=== PATIENT | male | born 1935 | race Two or more races ===

== ENCOUNTER 2023-12-31 12:09 | Emergency (ER) | payer MEDICARE, MEDICAID, SELFPAY ==
[2023-12-31 12:36] VITALS: BP 116/76; PULSE 105; RESP 19; TEMP 36.4; O2SAT 97
[2023-12-31 12:39] VITALS: BMI 26.4
--- NOTE | 2023-12-31 12:55 | PC.NURSE ---
asked to change guardado by provider. When deflated balloon catheter fell out and discovered small blue catheter that remained in the penis. Could not see blue catheter prior to deflating balloon on guardado. Showed to provider. Blue cather only inside penis approx 6 inches, removed in order to replace guardado
--- NOTE | 2023-12-31 13:05 | XR_ITS ---
Examination: CT abdomen and pelvis without contrast. Coronal 3-D reconstructions. Sagittal 2-D reconstructions. Date and time of exam:December 31, 2023 1401 hrs. Comparison December 23, 2023 Indications: Lower pelvic pain beginning 3 days ago, history kidney stones CTDI: vol (mGy): 8.87 DLP: (mGycm): 500 Technique: Axial images of the abdomen have been obtained, 3 mm slice thickness Intravenous contrast material has not been administered. Low dose protocols were performed. One or more of the following dose reduction techniques were used; automated exposure control, adjustment of the mA and/or KV according to patient size, use of iterative reconstruction technique. Findings: Cholelithiasis. Benign liver cysts. Fatty infiltration throughout the liver No pancreatic mass 8 cm lateral right renal cyst Moderate left hydronephrosis wall thickening of the dilated left ureter air density in the left ureter, no current left ureteral calculus Multiple tiny calculi in the bladder Urinary Seaman catheter in the bladder with wall thickening of the urinary bladder No bowel obstruction or diverticulitis Prominent osteopenia Impression: Atrophic left kidney with moderate left hydronephrosis, findings most consistent with left pyelonephritis, no obstructing ureteral calculi currently Cystitis pattern Bladder calculi
--- NOTE | 2023-12-31 13:06 | PD.EDRME ---
Rapid Medical Screening Exam E Arrival date/time: 12/31/23 12:09 88-year-old male presents to the emergency department accompanied with son for complaints of Seaman catheter leaking/possible stent out of his penis. I have greeted and performed a focused initial assessment of this patient. Initial appropriate labs ordered at this time. A comprehensive ED assessment and evaluation of the patient and analysis of all test and completion of medical decision making process will be conducted by additional ED provider. Chief Complaint: Urogenital-Male Time Seen by Provider: 12/31/23 12:31 Vital signs: Vital Signs Temperature 97.6 F 12/31/23 12:36 Pulse Rate 105 H 12/31/23 12:36 Respiratory Rate 19 12/31/23 12:36 Blood Pressure 116/76 12/31/23 12:36 Pulse Oximetry (%) 97 12/31/23 12:36 Oxygen Delivery Method Room Air 12/31/23 12:36
[2023-12-31 13:30] LABS: Basophils # (Auto) 0.1 Thou/mm3 (0.0-0.2); Basophils % (Auto) 1 % (0-2.5); Eosinophils # (Auto) 0.2 Thou/mm3 (0.0-0.5); Eosinophils % (Auto) 2 % (0-10); Hematocrit 40.7 % (41.0-53.0); Immature Granulocytes % (Auto) 1 % (0-0); Immature Granulocytes Auto 0.08 Thou/mm3 (0.00-0.00); Lymphocytes # (Auto) 1.4 Thou/mm3 (1.0-4.8); Lymphocytes % (Auto) 14 % (10-50); Mean Corpuscular HGB Conc 34.4 g/dl (31.0-37.0); Mean Corpuscular Hemoglobin 30.6 pg (25.0-35.0); Mean Corpuscular Volume 89 fL (80-100); Monocytes # (Auto) 0.6 Thou/mm3 (0.0-0.8); Monocytes % (Auto) 6 % (0-12); Neutrophils # (Auto) 7.3 Thou/mm3 (1.8-7.7); Neutrophils % (Auto) 76 % (37-80); Nucleated Red Blood Cell % 0 /100 WBC (0); Platelet Count 292 Thou/mm3 (140-440); Red Blood Count 4.57 Miln/mm3 (4.50-5.90); White Blood Count 9.6 Thou/mm3 (3.8-10.6)
--- NOTE | 2023-12-31 13:40 | PD.EDADULT ---
ED General RME/HPI General Chief complaint: Urogenital-Male Stated complaint: WANTS MAGUIRE CHANGED /LEAKING URINE Time Seen by Provider: 12/31/23 12:31 Arrival date/time: 12/31/23 12:09 CC: Patient presents to the main ED after Maguire change was performed in the triage fast-track area, and we did confirm proper placement. Patient has no specific complaints. RME / HPI RME / HPI narrative: 12/31/23 12:09 88-year-old male presents to the emergency department accompanied with son for complaints of Maguire catheter leaking/possible stent out of his penis. I have greeted and performed a focused initial assessment of this patient. Initial appropriate labs ordered at this time. A comprehensive ED assessment and evaluation of the patient and analysis of all test and completion of medical decision making process will be conducted by additional ED provider. Related Data Home Medications ?Medication ?Instructions ?Recorded ?Confirmed baclofen 10 mg tablet 10 mg PO QDAY 03/08/22 05/05/22 Previous Rx's ?Medication ?Instructions ?Recorded hydrocodone 7.5 mg-acetaminophen 1 tab PO Q6H PRN pain #14 tabs 03/08/22 325 mg tablet acetaminophen 325 mg tablet 650 mg (2 x 325 mg) PO Q6H PRN 12/23/23 Fever >101.5 30 days #60 tabs ceftriaxone 1 gram/50 mL in 1 g (50 mL) IV DAILY@2100 10 days 12/23/23 dextrose (iso-osmot) intravenous #24 ea piggyback dextrose 50 % in water (D50W) 25 ml IV Q15MIN PRN BG 50-70 12/23/23 responsive npo pt 15 days #500 mL dextrose 50 % in water (D50W) 50 ml IV Q15MIN PRN BG <50 OR BG 12/23/23 <70 & pt unresponsive #500 mL glucagon HCl 1 mg/mL solution for 1 mg IM Q15MIN PRN BG <70, and no 12/23/23 injection IV access #10 ea heparin (porcine) 5,000 unit/mL 5,000 unit SCi Q8HR #25 mL 12/23/23 injection solution insulin regular human 100 unit/mL 2 unit (0.02 mL) SCi ACHS #10 mL 12/23/23 injection solution (Humulin R Regular U-100 Insulin) tamsulosin 0.4 mg capsule 0.4 mg PO BID 30 days #60 caps 12/23/23 ciprofloxacin HCl 500 mg tablet 500 mg PO BID #14 tabs 12/31/23 (Cipro) Allergies Allergy/AdvReac Type Severity Reaction Status Date / Time No Known Allergies Allergy Verified 12/22/23 18:14 Review of Systems Review of Systems Narrative Review of Systems: GEN: No fever, no chills, no weight loss EYES: No discharge, no visual changes, no pain HEENT: No ear pain, no congestion, no sore throat PULM: No shortness of breath, no cough, no congestion CV: No chest pain, no dyspnea on exertion, no palpitations GI: No nausea, no vomiting, no diarrhea, no pain, no constipation : No frequency, no urgency, no dysuria,+ leaking Maguire MUSC/SKEL: No joint pain, no back pain SKIN: No rash PSYCH: No hallucinations, no depression HEME/LYMPH: No easy bleeding or bruising tendencies NEURO: No weakness, no headache Past Medical History Past Medical History NEUROLOGIC: Negative Neurological Disorders, Cerebrovascular Accident or Seizures CARDIAC: Positive Cardiac Disorders, Hypercholesterolemia and Hypertension; Negative Myocardial Infarction or Congestive Heart Failure RESPIRATORY: Negative Chronic Obstructive Pulmonary Disease (COPD) or Asthma GASTROINTESTINAL: Negative Gastrointestinal Disorders, Gastrointestinal Bleed or Hemorrhoids GENITOURINARY: Positive Prostate Cancer; Negative Genitourinary Disorders or Renal Disease ENDOCRINE: Negative Endocrine Disorders, Diabetes Mellitus Type 1 or Diabetes Mellitus Type 2 HEMATOLOGIC: Negative Blood Disorders or Sickle Cell Disease OTHER HISTORY: Positive Cancer and Prostate Cancer; Negative Blood Transfusions or Anesthesia Reactions Social History SMOKING STATUS: Never smoker SUBSTANCE USE: does not use ED Exam Narrative Physical exam: [General: Not in any acute distress Head normocephalic HEENT: Within acceptable limits Neck is supple nontender Chest equal chest rise nontender to palpation Respiratory: Clear to auscultation no wheezes crackles or rubs CV: Rate rhythm is regular no murmurs rubs or clicks Abdomen is soft nontender no masses positive bowel sounds all 4 quadrants : Maguire in emerging from the meatus of the penis. With a small amount of clear urine leaking urine. Back: No CVA tenderness no spinous process tenderness from cervical spine thoracic and lumbar spine Skin: Intact no petechiae rash induration ulceration or crepitus Extremities: Moving all extremity against resistance cap refill less than 2 seconds neurosensory intact Neuro: Awake alert oriented x3 Glascow coma 15 no focal deficits] Course Quality Measures none Orders Category Date Time Status Urinary Catheter QS Care 12/31/23 13:08 Completed Urinary Catheter, Remove ONCE Care 12/31/23 13:[address] abdomen pelvis wo con Stat Exams 12/31/23 13:05 Completed CBC Stat Lab 12/31/23 13:13 Completed CMP [Comprehensive Metabolic Panel] Stat Lab 12/31/23 13:13 Completed UA [Urinalysis] Stat Lab 12/31/23 15:28 Completed cefTRIAXone/D5w 1gm IV premix [Rocephin/D5w 1gm IV Med 12/31/23 16:31 Discontinued premix] 50 ml IV X1 Vital Signs Vital signs: Vital Signs Temperature 97.6 F 12/31/23 12:36 Pulse Rate 105 H 12/31/23 12:36 Respiratory Rate 19 12/31/23 12:36 Blood Pressure 116/76 12/31/23 12:36 Pulse Oximetry (%) 97 12/31/23 12:36 Oxygen Delivery Method Room Air 12/31/23 12:36 [facility] Patient data External records reviewed:: [facility] previous records Clinical information provided by:: patient Social determinants that could affect healthcare access:: none Patient has the following chronic illnesses:: BPH recurrent UTIs How is presenting disease/condition affected by chronic disease/condition?: exacerbated by Evaluation data The following diagnostics were reviewed and interpreted by me:: lab results and radiology exam(s) Lab and/or radiology exams considered but not ordered:: CBC shows no acute leukocytosis anemia thrombocytopenia CMP shows a glucose of 138, sodium 134 no other acute electrolyte imbalances renal impairment transaminitis or T. bili elevation. Interpretation Summary: Maguire change, and UTI Medications Medications considered but not ordered:: None Medication administrations:: Medication Administration History Discontinued Medications Ceftriaxone Sodium/Dextrose (Rocephin/D5w 1gm Iv Premix) 50 mls @ 100 mls/hr IV X1 ONE Stop: 12/31/23 17:00 Last Admin: 12/31/23 16:45 Dose: 100 mls/hr Documented By: MATHEW None Consultations Consultation(s) initiated? (list below): No Diagnosis Differential Diagnosis ED Complaint MDM: Maguire change UTI cystitis Most likely diagnosis given after review of the tests above:: Maguire change UTI Admission Indicated Admission indicated?: not indicated Explain why admission is indicated or not indicated:: Stable for outpatient follow-up Admission Request Was there a request for admission?: No Disposition Plan Disposition Plan: Discharge Discharge Attestation Discharge Attestation: The patient and all family members were given an opportunity to ask questions and understood the discharge instructions. Discharge instructions specifically effects, indications for sooner follow up or return to the emergency department, and the expected course of current diagnosis. Patient condition: Stable Medical Decision Making Differential Diagnosis Differential Diagnosis: Maguire change UTI cystitis Lab Data 12/31/23 13:13 12/31/23 13:13 Labs: Lab Results 12/31/23 12/31/23 Range/Units 13:13 15:28 WBC 9.6 (3.8-10.6) Thou/mm3 RBC 4.57 (4.50-5.90) Miln/mm3 Hgb 14.0 (13.5-16.0) g/dL Hct 40.7 L (41.0-53.0) % MCV 89 (80-100) fL MCH 30.6 (25.0-35.0) pg MCHC 34.4 (31.0-37.0) g/dl RDW Std Deviation 42.0 (35.1-43.9) fL Plt Count 292 D (140-440) Thou/mm3 Neut % (Auto) 76 (37-80) % Lymph % (Auto) 14 (10-50) % [place] % (Auto) 6 (0-12) % Eos % (Auto) 2 (0-10) % Baso % (Auto) 1 (0-2.5) % Neut # (Auto) 7.3 (1.8-7.7) Thou/mm3 Lymph # (Auto) 1.4 (1.0-4.8) Thou/mm3 [place] # (Auto) 0.6 (0.0-0.8) Thou/mm3 Eos # (Auto) 0.2 (0.0-0.5) Thou/mm3 Baso # (Auto) 0.1 (0.0-0.2) Thou/mm3 Immature Gran # (Auto) 0.08 H (0.00-0.00) Thou/mm3 Absolute Nucleated RBC 0.00 (0.00-0.00) Thou/mm3 Immature Gran % 1 H (0-0) % Nucleated RBC % 0 (0) /100 WBC Sodium 134 L (136-145) mMol/L Potassium 4.1 (3.4-5.1) mMol/L Chloride 100 (98-107) mMol/L Carbon Dioxide 26.3 (20.0-31.0) mMol/L Anion Gap 8 (7-16) BUN 17 (9-23) mg/dL Creatinine 1.2 (0.6-1.3) mg/dL Estim Creat Clear Calc 39.1 L (>60) mL/min eGFR 59 L (60 - ) See Note BUN/Creatinine Ratio 14 (12-20) Ratio Glucose 138 H (74-106) mg/dL Calculated Osmolality 271 L (275-295) Calcium 9.2 (8.3-10.6) mg/dL Corrected Calcium 9.2 (8.5-10.1) mg/dL Total Bilirubin 0.3 (0.3-1.2) mg/dL AST 16 (0-34) U/L ALT 19 (10-49) U/L Alkaline Phosphatase 76 (46-116) U/L Total Protein 7.2 (5.7-8.2) gm/dL Albumin 4.1 (3.4-4.8) gm/dL Globulin 3.1 (2.3-3.5) gm/dL Albumin/Globulin Ratio 1.3 (1.2-2.2) Ur Collection Type Clean Catch Urine Color Lt-Brown A (Lt Yel-Yel) Urine Clarity Turbid A (Clear/Hazy) Urine pH 6.0 (5.0-7.0) Ur Specific [place] 1.027 (1.001-1.035) Urine Protein 2+ A (Neg - Trace) Urine Glucose (UA) Negative (Negative) Urine Ketones Negative (Negative) Urine Blood 3+ A (Negative) Urine Nitrite Negative (Negative) Urine Bilirubin Negative (Negative) Urine Urobilinogen (Auto) Negative (0.0-1.0) mg/dL Ur Leukocyte Esterase Positive (Negative) Urine RBC 1547 H (0-3) /hpf Urine WBC 851 H (0-5) /hpf Ur Squamous Epith Cells 2 (0-5) /hpf Ur Transition Epith Cell 1 (0-5) /hpf Urine Bacteria None (None) Ur Yeast w Hyphae Present A (None) Urine Yeast (Budding) Present A (None) Discharge Plan Plan Patient Disposition: HOME (Self Care) Patient condition on transfer: Stable Prescriptions/Referrals Prescriptions/Med Rec: New ciprofloxacin HCl [Cipro] 500 mg tablet 500 mg PO BID Qty: 14 0RF No Action baclofen 10 mg Tablet 10 mg PO QDAY hydrocodone-acetaminophen 7.5-325 mg tablet 1 tab PO Q6H MDD 4 PRN (Reason: pain) Qty: 14 0RF acetaminophen 325 mg Tablet 650 mg PO Q6H PRN (Reason: Fever >101.5) 30 Days Qty: 60 0RF ceftriaxone in dextrose,iso-os 1 gram/50 mL Piggyback 1 g IV DAILY@2100 10 Days Qty: 24 0RF dextrose 50 % in water (D50W) Syringe 50 ml IV Q15MIN PRN (Reason: BG <50 OR BG <70 & pt unresponsive) Qty: 500 0RF dextrose 50 % in water (D50W) Syringe 25 ml IV Q15MIN PRN (Reason: BG 50-70 responsive npo pt) 15 Days Qty: 500 0RF glucagon HCl 1 mg/mL Recon Soln 1 mg IM Q15MIN PRN (Reason: BG <70, and no IV access) Qty: 10 0RF Humulin R Regular U-100 Insuln 100 unit/mL Solution 2 unit SCi ACHS Qty: 10 0RF heparin (porcine) 5,000 unit/mL Solution 5,000 unit SCi Q8HR Qty: 25 0RF tamsulosin 0.4 mg Capsule 0.4 mg PO BID 30 Days Qty: 60 0RF Referrals: Radha Yoder CNP [Primary Care Provider] - In 1 week Problem List Clinical Impression: UTI (urinary tract infection) due to urinary indwelling catheter Patient/Caregiver Discharge Instructions Other Activity Instructions:: Maguire is in place, continue take the medications to completely gone. Follow-up with your primary care provider. Print Language: Icelandic Stand Alone Forms: Janell Award Info., Work/School Release, Patient Portal Info Letter Attestation Attestation The patient was seen by the midlevel practitioner. I, the co-signing physician, was present during the entire ER visit. While I did not physically examine the patient, I was available for consultation as needed.
[2023-12-31 13:41] LABS: Alanine Aminotransferase 19 U/L (10-49); Albumin, Serum 4.1 gm/dL (3.4-4.8); Albumin/Globulin Ratio 1.3 (1.2-2.2); Alkaline Phosphatase 76 U/L (46-116); Anion Gap 8 (7-16); Aspartate Amino Transferase 16 U/L (0-34); BUN/Creatinine Ratio 14 Ratio (12-20); Bilirubin,Total 0.3 mg/dL (0.3-1.2); Blood Urea Nitrogen 17 mg/dL (9-23); Calcium 9.2 mg/dL (8.3-10.6); Calcium (Corrected) 9.2 mg/dL (8.5-10.1); Carbon Dioxide 26.3 mMol/L (20.0-31.0); Chloride 100 mMol/L (98-107); Creatinine (Component) 1.2 mg/dL (0.6-1.3); Estimated Creatinine Clearance 39.1 mL/min (>60); Globulin 3.1 gm/dL (2.3-3.5); Glucose 138 mg/dL (74-106); Osmolality,Calculated 271 (275-295); Potassium 4.1 mMol/L (3.4-5.1); Sodium 134 mMol/L (136-145); Total Protein 7.2 gm/dL (5.7-8.2); eGFR 59 See Note
[2023-12-31 15:05] VITALS: BP 146/83; PULSE 88; RESP 18; TEMP 36.5; O2SAT 96
[2023-12-31 15:36] LABS: Collection Type, Urine Clean Catch
[2023-12-31 16:09] LABS: Bilirubin,Urine Negative (Negative); Blood,Urine 3+ (Negative); Budding Yeast,Urine Present; Glucose, Urine Negative (Negative); Hyphae Yeast Present; Ketones,Urine Negative (Negative); Leukocyte Esterase,Urine Positive (Negative); Nitrite,Urine Negative (Negative); Protein,Urine 2+ (Neg - Trace); RBC,Urine 1547 /hpf (0-3); Specific Gravity,Urine 1.027 (1.001-1.035); Squamous Epithelial Cell,Urine 2 /hpf (0-5); Transitional Epi Cells,Urine 1 /hpf (0-5); Urobilinogen,Urine Negative mg/dL (0.0-1.0); WBC,Urine 851 /hpf (0-5)
[2023-12-31 16:10] LABS: Clarity,Urine Turbid (Clear/Hazy); Color,Urine Lt-Brown (Lt Yel-Yel)
[2023-12-31 16:20] VITALS: BP 152/92; PULSE 85; RESP 16; TEMP 36.4; O2SAT 94
[2023-12-31] MEDS: cefTRIAXone/D5w 1gm IV premix 50 ML IV (16:45)
== END 2023-12-31 16:53 | disposition home or self-care (01) ==
PROVIDERS: Nurse Practitioner Primary Care; Emergency Provider Emergency Medicine; PCP Nurse Practitioner Family
DX: T83.511A Infection and inflammatory reaction due to indwelling urethral catheter, initial encounter (principal); N39.0 Urinary tract infection, site not specified; Y84.6 Urinary catheterization as the cause of abnormal reaction of the patient, or of later complication, without mention of misadventure at the time of the procedure
CPT/HCPCS: 51702; 36415; 74176; 80053; 81001; 85025; 87086; 99284; J0696

== ENCOUNTER 2024-01-09 12:43 | Emergency (ER) | payer MEDICARE, MEDICAID, SELFPAY ==
[2024-01-09 13:02] VITALS: BP 123/75; PULSE 103; RESP 19; TEMP 37.2; O2SAT 99; BMI 30.6
[2024-01-09 14:40] LABS: Collection Type, Urine Clean Catch
[2024-01-09 14:51] LABS: Bacteria,Urine Rare; Bilirubin,Urine Negative (Negative); Blood,Urine 2+ (Negative); Color,Urine Lt-Yellow (Lt Yel-Yel); Glucose, Urine Negative (Negative); Hyaline Casts,Urine < 1 /hpf (0-1); Ketones,Urine Negative (Negative); Leukocyte Esterase,Urine Positive (Negative); Nitrite,Urine Negative (Negative); Protein,Urine 1+ (Neg - Trace); RBC,Urine 19 /hpf (0-3); Specific Gravity,Urine 1.014 (1.001-1.035); Squamous Epithelial Cell,Urine < 1 /hpf (0-5); Urobilinogen,Urine Negative mg/dL (0.0-1.0); WBC,Urine 266 /hpf (0-5)
[2024-01-09 14:52] LABS: Clarity,Urine Hazy (Clear/Hazy); Culture Indicated,Urine Yes
--- NOTE | 2024-01-09 15:01 | EDNOTE_ITS ---
ED Male Genitalurinary RME/HPI General Chief complaint: Urogenital-Male Stated complaint: INFECTION IN HIS PENIS X 3 DAYS Time Seen by Provider: 01/09/24 12:54 Arrival date/time: 01/09/24 12:43 88-year-old male with indwelling catheter presents emergency department today with son who reports the patient has increased sediment in his urine and is concerned about a possible infection. Patient reports no nausea no vomiting reports he feels well Limitations: no limitations Related Data Home Medications ?Medication ?Instructions ?Recorded ?Confirmed baclofen 10 mg tablet 10 mg PO QDAY 03/08/22 05/05/22 Previous Rx's ?Medication ?Instructions ?Recorded hydrocodone 7.5 mg-acetaminophen 1 tab PO Q6H PRN pain #14 tabs 03/08/22 325 mg tablet acetaminophen 325 mg tablet 650 mg (2 x 325 mg) PO Q6H PRN 12/23/23 Fever >101.5 30 days #60 tabs dextrose 50 % in water (D50W) 50 ml IV Q15MIN PRN BG <50 OR BG 12/23/23 <70 & pt unresponsive #500 mL glucagon HCl 1 mg/mL solution for 1 mg IM Q15MIN PRN BG <70, and no 12/23/23 injection IV access #10 ea heparin (porcine) 5,000 unit/mL 5,000 unit SCi Q8HR #25 mL 12/23/23 injection solution insulin regular human 100 unit/mL 2 unit (0.02 mL) SCi ACHS #10 mL 12/23/23 injection solution (Humulin R Regular U-100 Insulin) tamsulosin 0.4 mg capsule 0.4 mg PO BID 30 days #60 caps 12/23/23 ciprofloxacin HCl 500 mg tablet 500 mg PO BID #14 tabs 12/31/23 (Cipro) cefpodoxime 200 mg tablet 200 mg PO BID 7 days #14 tabs 01/09/24 Allergies Allergy/AdvReac Type Severity Reaction Status Date / Time No Known Allergies Allergy Verified 01/09/24 12:44 Review of Systems Review of Systems Systems Reviewed: All systems reviewed, normal except as documented Constitutional Constitutional: Reports system reviewed and no additional complaints, except as documented, Denies fever(s) and Denies headache(s) Eyes Eyes: Reports system reviewed and no additional complaints, except as documented and Denies blurry vision ENT Ears, Nose, Mouth, and Throat: Reports system reviewed and no additional complaints, except as documented, Denies headache(s), Denies nasal congestion and Denies nasal discharge Cardiovascular Cardiovascular: Reports system reviewed and no additional complaints, except as documented, Denies chest pain and Denies dyspnea Respiratory Respiratory: Reports system reviewed and no additional complaints, except as documented, Denies chest congestion, Denies cough and Denies dyspnea Gastrointestinal Gastrointestinal: Reports system reviewed and no additional complaints, except as documented and Denies abdominal pain Genitourinary Genitourinary: Reports system reviewed and no additional complaints, except as documented, Denies difficulty urinating, Denies dysuria, Denies testicular pain, Denies urinary frequency and Reports other (Discolored/sediment in urine) Integumentary/Breasts Skin/Breast: Reports system reviewed and no additional complaints, except as documented and Denies rash Neurologic Neurologic: Reports system reviewed and no additional complaints, except as documented, Reports as per HPI and Denies headache(s) Past Medical History Past Medical History NEUROLOGIC: Negative Neurological Disorders CARDIAC: Negative Cardiac Disorders ED Exam General Limitations: Present no limitations General appearance: Present alert and in no apparent distress Head Head exam: Present atraumatic Eye Eye exam: Present normal appearance, PERRL and EOMI ENT ENT exam: Present normal exam, normal oropharynx and mucous membranes moist Neck Neck exam: Present normal inspection, full ROM and trachea midline Chest Chest inspection: Present normal inspection and symmetric chest wall rise Respiratory Respiratory exam: Present normal lung sounds bilaterally; Absent respiratory distress Cardiovascular Cardiovascular exam: Present regular rate, normal rhythm and normal heart sounds Abdominal Exam Abdominal exam: Present soft and normal bowel sounds; Absent distention, tenderness, guarding, rebound or rigidity Extremities Exam Extremities exam: Present normal inspection and full ROM Back Exam Back exam: Present normal inspection and full ROM Neurological Exam Neurological exam: Present alert, oriented X3 and CN II-XII intact Psychiatric Psychiatric exam: Present normal affect and normal mood Skin Skin exam: Present warm, dry, intact and normal color Course Quality Measures none Orders Category Date Time Status Seaman [Urinary Catheter] NOW Care 01/09/24 13:09 Completed UA, C/S IF [Urinalysis, C/S if Indicated] Stat Lab 01/09/24 14:16 Completed Urine Culture Stat Lab 01/09/24 14:16 Received Lidocaine 1% 20 ml [Xylocaine 1% 20 ML] Med 01/09/24 15:01 Discontinued 2.1 ml INFL X1 ONE cefTRIAXone [Rocephin] Med 01/09/24 15:01 Discontinued 1,000 mg IM X1 ONE Vital Signs Vital signs: Vital Signs Temperature 98.9 F 01/09/24 13:02 Pulse Rate 103 H 01/09/24 13:02 Respiratory Rate 19 01/09/24 13:02 Blood Pressure 123/75 01/09/24 13:02 Pulse Oximetry (%) 99 01/09/24 13:02 Oxygen Delivery Method Room Air 01/09/24 13:02 O2 saturation 99% room air within normal limits Urogenital - Male MDM Narrative MDM Narrative:: 88-year-old male with indwelling catheter presents emergency department today with son who reports the patient has increased sediment in his urine and is co ncerned about a possible infection. Patient reports no nausea no vomiting reports he feels well On exam patient well-appearing patient does not appear ill or toxic and in no acute distress Patient's Seaman catheter was changed UA obtained consistent with UTI Patient discharged home in no distress to follow-up with primary care doctor in the next 24 to 48 hours and for any worsening symptoms to return to the ER immediately Patient data External records reviewed:: [facility] previous records Clinical information provided by:: patient Social determinants that could affect healthcare access:: none Patient has the following chronic illnesses:: None How is presenting disease/condition affected by chronic disease/condition?: no chronic disease Evaluation data The following diagnostics were reviewed and interpreted by me:: lab results Lab and/or radiology exams considered but not ordered:: Labs labs obtained Interpretation Summary: Reviewed by me Medications / Prescriptions Medications or Prescriptions considered but not ordered:: Given Medication administrations:: Medication Administration History Discontinued Medications Ceftriaxone Sodium (Ceftriaxone Sod Inj 1,000 Mg Vial) 1,000 mg IM X1 ONE Stop: 01/09/24 15:02 Last Admin: 01/09/24 15:11 Dose: 1,000 mg Documented By: JONY Lidocaine HCl (Lidocaine Hcl 1% 20 Ml Vial) 2.1 ml INFL X1 ONE Stop: 01/09/24 15:02 Last Admin: 01/09/24 15:11 Dose: 2.1 ml Documented By: JONY Given Consultations Consultation(s) initiated? (list below): No Diagnosis Urogenital Male Differential Diagnosis: urinary tract infection, acute retention of urine and other (Dysuria) Most likely diagnosis given after review of the tests above:: UTI Admission Indicated Admission indicated?: not indicated Admission Request Was there a request for admission?: No Disposition Plan Disposition Plan: Discharge Discharge Attestation Discharge Attestation: The patient and all family members were given an opportunity to ask questions and understood the discharge instructions. Discharge instructions specifically effects, indications for sooner follow up or return to the emergency department, and the expected course of current diagnosis. Patient condition: Stable Discharge Plan Plan Patient Disposition: HOME (Self Care) Disposition Comment: Stable Prescriptions/Referrals Prescriptions/Med Rec: New cefpodoxime 200 mg tablet 200 mg PO BID 7 Days Qty: 14 0RF Rx Instructions: must administer with a meal/food No Action ciprofloxacin HCl [Cipro] 500 mg tablet 500 mg PO BID Qty: 14 0RF baclofen 10 mg Tablet 10 mg PO QDAY hydrocodone-acetaminophen 7.5-325 mg tablet 1 tab PO Q6H MDD 4 PRN (Reason: pain) Qty: 14 0RF acetaminophen 325 mg Tablet 650 mg PO Q6H PRN (Reason: Fever >101.5) 30 Days Qty: 60 0RF dextrose 50 % in water (D50W) Syringe 50 ml IV Q15MIN PRN (Reason: BG <50 OR BG <70 & pt unresponsive) Qty: 500 0RF glucagon HCl 1 mg/mL Recon Soln 1 mg IM Q15MIN PRN (Reason: BG <70, and no IV access) Qty: 10 0RF Humulin R Regular U-100 Insuln 100 unit/mL Solution 2 unit SCi ACHS Qty: 10 0RF heparin (porcine) 5,000 unit/mL Solution 5,000 unit SCi Q8HR Qty: 25 0RF tamsulosin 0.4 mg Capsule 0.4 mg PO BID 30 Days Qty: 60 0RF Referrals: Roxy Newman NP [Primary Care Provider] - 01/10/24 Problem List Clinical Impression: UTI (urinary tract infection), Indwelling Seaman catheter present Patient/Caregiver Discharge Instructions Education Materials: When to Use Antibiotics Additional Instructions: Please follow up with your primary care doctor in the next 24-48hrs for any worsening symptoms return here immediately Print Language: Lithuanian Stand Alone Forms: Janell Award Info., Patient Portal Info Letter Attestation Attestation The patient was seen by the midlevel practitioner. I, the co-signing physician, was present during the entire ER visit. While I did not physically examine the patient, I was available for consultation as needed.
[2024-01-09] MEDS: LIDOCAINE HCL 1% 20 ML VIAL 2.1 ML INFL (15:11)
[2024-01-09] MEDS: cefTRIAXone SOD INJ 1,000 MG VIAL 1000 MG IM (15:11)
== END 2024-01-09 15:24 | disposition home or self-care (01) ==
PROVIDERS: Nurse Practitioner Primary Care; Emergency Provider Emergency Medicine; PCP Nurse Practitioner Family
DX: N39.0 Urinary tract infection, site not specified (principal)
CPT/HCPCS: 51702; 81001; 87086; 87106; 96372; 99283; J0696; J3490

== ENCOUNTER 2024-02-02 15:05 | Emergency (ER) | payer MEDICARE, MEDICAID, SELFPAY ==
[2024-02-02 15:40] VITALS: BP 110/72; PULSE 100; RESP 16; TEMP 36.9; O2SAT 96; BMI 29.2
--- NOTE | 2024-02-02 15:45 | EDRME_ITS ---
Rapid Medical Screening Exam [facility] Arrival date/time: 02/02/24 15:05 88-year-old male presents to the emergency department with complaints of nausea vomiting and leakage of Seaman catheter. Recent history of lithotripsy. I have greeted and performed a focused initial assessment of this patient. Initial appropriate labs ordered at this time. A comprehensive ED assessment and evaluation of the patient and analysis of all test and completion of medical decision making process will be conducted by additional ED provider. Chief Complaint: Nausea/Vomiting/Diarrhea Time Seen by Provider: 02/02/24 15:26 Vital signs: Vital Signs Temperature 98.5 F 02/02/24 15:40 Pulse Rate 100 02/02/24 15:40 Respiratory Rate 16 02/02/24 15:40 Blood Pressure 110/72 02/02/24 15:40 Pulse Oximetry (%) 96 02/02/24 15:40 Oxygen Delivery Method Room Air 02/02/24 15:40
[2024-02-02 16:21] LABS: Basophils % (Auto) 0 % (0-2.5); Eosinophils % (Auto) 0 % (0-10); Hematocrit 37.7 % (41.0-53.0); Hemoglobin 12.7 g/dL (13.5-16.0); Immature Granulocytes % (Auto) 0 % (0-0); Immature Granulocytes Auto 0.03 Thou/mm3 (0.00-0.00); Lymphocytes # (Auto) 2.1 Thou/mm3 (1.0-4.8); Lymphocytes % (Auto) 20 % (10-50); Mean Corpuscular HGB Conc 33.7 g/dl (31.0-37.0); Mean Corpuscular Hemoglobin 30.8 pg (25.0-35.0); Mean Corpuscular Volume 92 fL (80-100); Monocytes # (Auto) 0.7 Thou/mm3 (0.0-0.8); Monocytes % (Auto) 6 % (0-12); Neutrophils # (Auto) 7.4 Thou/mm3 (1.8-7.7); Neutrophils % (Auto) 73 % (37-80); Nucleated Red Blood Cell % 0 /100 WBC (0); Platelet Count 164 Thou/mm3 (140-440); RDW Standard Deviation 47.8 fL (35.1-43.9); Red Blood Count 4.12 Miln/mm3 (4.50-5.90); White Blood Count 10.2 Thou/mm3 (3.8-10.6)
[2024-02-02 16:40] LABS: Alanine Aminotransferase 20 U/L (10-49); Albumin, Serum 4.1 gm/dL (3.4-4.8); Albumin/Globulin Ratio 1.4 (1.2-2.2); Alkaline Phosphatase 79 U/L (46-116); Anion Gap 8 (7-16); Aspartate Amino Transferase 14 U/L (0-34); BUN/Creatinine Ratio 12 Ratio (12-20); Bilirubin,Total 0.7 mg/dL (0.3-1.2); Blood Urea Nitrogen 18 mg/dL (9-23); Carbon Dioxide 25.9 mMol/L (20.0-31.0); Chloride 99 mMol/L (98-107); Creatinine (Component) 1.5 mg/dL (0.6-1.3); Estimated Creatinine Clearance 32.6 mL/min (>60); Globulin 2.9 gm/dL (2.3-3.5); Glucose 129 mg/dL (74-106); Osmolality,Calculated 270 (275-295); Potassium 4.1 mMol/L (3.4-5.1); Sodium 133 mMol/L (136-145); eGFR 45 See Note
--- NOTE | 2024-02-02 18:46 | PD.EDNV ---
Nausea/Vomit./Diarrhea-RME/HPI General Chief complaint: Nausea/Vomiting/Diarrhea Stated complaint: VOMITING SINCE LAST NIGHT,CATHETER LEAKING Time Seen by Provider: 02/02/24 15:26 Arrival date/time: 02/02/24 15:05 RME / HPI RME / HPI Narrative: 88-year-old male presents to the emergency department with complaints of nausea vomiting and leakage of Seaman catheter. This been ongoing since last night. Denies any fever. Recent history of lithotripsy. Denies any abdominal pain. Related Data Home Medications ?Medication ?Instructions ?Recorded ?Confirmed baclofen 10 mg tablet 10 mg PO QDAY 03/08/22 05/05/22 Previous Rx's ?Medication ?Instructions ?Recorded hydrocodone 7.5 mg-acetaminophen 1 tab PO Q6H PRN pain #14 tabs 03/08/22 325 mg tablet dextrose 50 % in water (D50W) 50 ml IV Q15MIN PRN BG <50 OR BG 12/23/23 <70 & pt unresponsive #500 mL glucagon HCl 1 mg/mL solution for 1 mg IM Q15MIN PRN BG <70, and no 12/23/23 injection IV access #10 ea heparin (porcine) 5,000 unit/mL 5,000 unit SCi Q8HR #25 mL 12/23/23 injection solution insulin regular human 100 unit/mL 2 unit (0.02 mL) SCi ACHS #10 mL 12/23/23 injection solution (Humulin R Regular U-100 Insulin) ciprofloxacin HCl 500 mg tablet 500 mg PO BID #14 tabs 12/31/23 (Cipro) cefuroxime axetil 500 mg tablet 500 mg PO BID #14 tabs 02/02/24 Allergies Allergy/AdvReac Type Severity Reaction Status Date / Time No Known Allergies Allergy Verified 02/02/24 15:11 Review of Systems Review of Systems Narrative Review of Systems: Review of system reviewed and within normal limits except mentioned in HPI ED Exam Narrative Physical exam: VITAL SIGNS: Reviewed. GENERAL APPEARANCE: Alert and interactive, follows commands, no acute distress, HEAD AND FACE: Non-traumatic. ENT: PERRL, pink conjunctivitis, eyelid no trauma, Mucous membrane moist. NECK: Supple, nontender, no nuchal rigidity. CHEST: No tenderness, no crepitus, no paradoxical movement, no retractions. LUNGS: Clear, well ventilated, symmetric, no rales, no wheezing, no ronchi, no stridor, good breath sounds bilaterally. HEART: Regular rate, regular rhythm, no murmur, no gallops. ABDOMEN: Soft, positive bowel sounds, nondistended, no guarding, nontender, no rebound, no masses, RECTAL: Deferred. GENITAL: Seaman catheter intact however I noticed some urine leaking around the Seaman and the insertion site NEUROLOGICAL: Gross motor function intact sensory function intact, Appropriate for age. MUSCULOSKELETAL: low back nontender, full range of motion. EXTREMITIES: Nontender, full range of motion. SKIN: Color pink, dry, no rash, no lacerations, no abrasions, no contusions. LYMPHATICS: Deferred. Course Quality Measures none Orders Category Date Time Status Seaman [Urinary Catheter] QS Care 02/02/24 15:44 Active CBC Stat Lab 02/02/24 15:58 Completed CMP [Comprehensive Metabolic Panel] Stat Lab 02/02/24 15:58 Completed Urinalysis Stat Lab 02/02/24 19:15 Completed Urine Culture Stat Lab 02/02/24 19:15 Received Ondansetron Inj [Zofran Inj] Med 02/02/24 18:42 Discontinued 4 mg IV X1 ONE Sodium Chloride 0.9% 1000 ml [Ns] 1,000 ml Med 02/02/24 18:43 Discontinued IV 999 mls/hr cefTRIAXone/D5w 1gm IV premix [Rocephin/D5w 1gm IV Med 02/02/24 20:42 Discontinued premix] 50 ml IV X1 Vital Signs Vital signs: Vital Signs Temperature 98.5 F 02/02/24 15:40 Pulse Rate 100 02/02/24 15:40 Respiratory Rate 16 02/02/24 15:40 Blood Pressure 110/72 02/02/24 15:40 Pulse Oximetry (%) 96 02/02/24 15:40 Oxygen Delivery Method Room Air 02/02/24 15:40 Nausea/Vomiting/Diarrhea MDM Narrative MDM Narrative:: 88-year-old male presents to the emergency department with complaints of nausea vomiting and leakage of Seaman catheter. This been ongoing since last night. Denies any fever. Recent history of lithotripsy. Denies any abdominal pain. Urinary significant for UTI. A bigger Seaman catheter was inserted this time I used [place] 20 no leaking noted and draining well. Patient data External records reviewed:: None Clinical information provided by:: none Social determinants that could affect healthcare access:: none Patient has the following chronic illnesses:: Chronic Seaman catheter. Diabetes mellitus How is presenting disease/condition affected by chronic disease/condition?: exacerbated by Evaluation data The following diagnostics were reviewed and interpreted by me:: lab results Lab and/or radiology exams considered but not ordered:: None Interpretation Summary: Reports workup significant for UTI. Medications / Prescriptions Medications / Prescriptions considered but not ordered:: None Medication administrations:: Medication Administration History Discontinued Medications Sodium Chloride (Ns) 1,000 mls @ 999 mls/hr IV .Q1H1M ONE Stop: 02/02/24 19:43 Last Infusion: 02/02/24 20:46 Dose: Infused Documented By: Admin: 02/02/24 18:56 Dose: 999 mls/hr Documented By: AM Ceftriaxone Sodium/Dextrose (Rocephin/D5w 1gm Iv Premix) 50 mls @ 100 mls/hr IV X1 ONE Stop: 02/02/24 21:11 Last Admin: 02/02/24 21:21 Dose: 100 mls/hr Documented By: DB Ondansetron HCl (Ondansetron Inj 2 Mg/Ml Inj 2 Ml) 4 mg IV X1 ONE; Protocol Stop: 02/02/24 18:43 Last Admin: 02/02/24 18:56 Dose: 4 mg Documented By: AM Ceftriaxone IM and IV fluids for hydration and Zofran Consultations Consultation(s) initiated? (list below): No Diagnosis Nausea Differential Diagnosis: gastroenteritis, dehydration and other (UTI) Most likely diagnosis given after review of the tests above:: Nausea and vomiting, UTI, Admission Indicated Admission indicated?: not indicated Explain why admission is indicated or not indicated:: Stable. No more vomiting in the ED. Patient told me that he is back to baseline. After medication was given Admission Request Was there a request for admission?: No Disposition Plan Disposition Plan: Discharge Discharge Attestation Discharge Attestation: The patient and all family members were given an opportunity to ask questions and understood the discharge instructions. Discharge instructions specifically effects, indications for sooner follow up or return to the emergency department, and the expected course of current diagnosis. Patient condition: Stable Discharge Plan Plan Patient Disposition: HOME (Self Care) Disposition Comment: Stable Prescriptions/Referrals Prescriptions/Med Rec: New cefuroxime axetil 500 mg tablet 500 mg PO BID Qty: 14 0RF No Action ciprofloxacin HCl [Cipro] 500 mg tablet 500 mg PO BID Qty: 14 0RF baclofen 10 mg Tablet 10 mg PO QDAY hydrocodone-acetaminophen 7.5-325 mg tablet 1 tab PO Q6H MDD 4 PRN (Reason: pain) Qty: 14 0RF dextrose 50 % in water (D50W) Syringe 50 ml IV Q15MIN PRN (Reason: BG <50 OR BG <70 & pt unresponsive) Qty: 500 0RF glucagon HCl 1 mg/mL Recon Soln 1 mg IM Q15MIN PRN (Reason: BG <70, and no IV access) Qty: 10 0RF Humulin R Regular U-100 Insuln 100 unit/mL Solution 2 unit SCi ACHS Qty: 10 0RF heparin (porcine) 5,000 unit/mL Solution 5,000 unit SCi Q8HR Qty: 25 0RF Referrals: Joan Balderas PA-C [Primary Care Provider] - In 1 week Problem List Clinical Impression: UTI (urinary tract infection) due to urinary indwelling catheter Patient/Caregiver Discharge Instructions Discharge Activity: activity as tolerated Education Materials: Understanding Urinary Tract ... Additional Instructions: Thank you for the opportunity for serving you today. You are stable for discharged . You are advised to: Follow-up with your PCP in 1 to 2 days Return to ED for worsening of symptoms Increase oral fluids Take medication as prescribed Print Language: Greenlandic Stand Alone Forms: Janell Award Info., Patient Portal Info Letter NILSA/HELADIO Supervising Physician NILSA/HELADIO Supervising Physician: MD Kevin
[2024-02-02] MEDS: ONDANSETRON INJ 2 MG/ML INJ 2 ML 4 MG IV (18:56)
[2024-02-02] MEDS: SODIUM CHLORIDE 0.9% 1000 ML 1,000 ML 999 ML IV (18:56)
[2024-02-02 19:00] VITALS: BP 148/75; PULSE 83; RESP 16; TEMP 36.9; O2SAT 97
[2024-02-02 19:32] LABS: Collection Type, Urine Clean Catch
[2024-02-02 20:01] LABS: Bilirubin,Urine Negative (Negative); Blood,Urine 2+ (Negative); Glucose, Urine Negative (Negative); Ketones,Urine Negative (Negative); Leukocyte Esterase,Urine Positive (Negative); Nitrite,Urine Positive (Negative); Protein,Urine 1+ (Neg - Trace); RBC,Urine 55 /hpf (0-3); Specific Gravity,Urine 1.023 (1.001-1.035); Squamous Epithelial Cell,Urine 3 /hpf (0-5); WBC,Urine 2712 /hpf (0-5)
[2024-02-02 20:03] LABS: Clarity,Urine Turbid (Clear/Hazy); Color,Urine Lt Orange (Lt Yel-Yel)
[2024-02-02 20:09] VITALS: BP 120/88; PULSE 79; RESP 18; TEMP 37; O2SAT 95
[2024-02-02 20:12] VITALS: BP 120/88; PULSE 78; RESP 18; TEMP 36.7; O2SAT 96
[2024-02-02] MEDS: cefTRIAXone/D5w 1gm IV premix 50 ML IV (21:21)
--- NOTE | 2024-02-02 22:30 | PC.NURSE ---
Pt had a 20fr cath was inserted earlier today,but it started to leak, Per [employer] [employer] [facility] Will he order for a 22fr cath to be inserted. in which i placed
[2024-02-02 22:39] VITALS: BP 147/68; PULSE 77; RESP 16; TEMP 36.8; O2SAT 99
== END 2024-02-02 22:39 | disposition home or self-care (01) ==
PROVIDERS: Nurse Practitioner Primary Care; Emergency Provider Emergency Medicine; PCP Physician Assistant
DX: T83.511A Infection and inflammatory reaction due to indwelling urethral catheter, initial encounter (principal); N39.0 Urinary tract infection, site not specified; Y84.6 Urinary catheterization as the cause of abnormal reaction of the patient, or of later complication, without mention of misadventure at the time of the procedure
CPT/HCPCS: 51702; 36415; 80053; 81001; 85025; 87077; 87086; 87186; 96361; 96365; 96375; 99284; J0696; J2405; J7030

== ENCOUNTER 2024-04-22 09:33 | Emergency (ER) | payer MEDICARE, MEDICAID, SELFPAY ==
[2024-04-22 09:33] VITALS: BMI 25.0
[2024-04-22 09:44] VITALS: BP 150/79; PULSE 93; RESP 19; TEMP 36.4; O2SAT 96
--- NOTE | 2024-04-22 09:51 | EDNOTE_ITS ---
ED Male Genitalurinary RME/HPI General Chief complaint: Urogenital-Male Stated complaint: NEEDS NEW CATHETER BAG Time Seen by Provider: 04/22/24 09:38 Source: patient Arrival date/time: 04/22/24 09:33 88-year-old male with a history of type 2 diabetes presents to the emergency room with a chief complaint of needing a new catheter bag replaced. Patient states the leg bag started leaking yesterday. Patient states he has a Seaman catheter in place after they broke up some kidney stones and the patient began having urinary retention. Patient states he has a appointment with his urologist in a week and a half. Patient denies any other signs or symptoms. Mode of arrival: ambulatory Limitations: no limitations Related Data Home Medications ?Medication ?Instructions ?Recorded ?Confirmed baclofen 10 mg tablet 10 mg PO QDAY 03/08/2205/05 Previous Rx's ?Medication ?Instructions ?Recorded hydrocodone 7.5 mg-acetaminophen 1 tab PO Q6H PRN pain #14 tabs 03/08/22 325 mg tablet dextrose 50 % in water (D50W) 50 ml IV Q15MIN PRN BG < 50 OR BG 12/23/23 <70 & pt unresponsive #500 mL glucagon HCl 1 mg/mL solution for 1 mg IM Q15MIN PRN B G <70, and no 12/23/23 injection IV access #10 ea heparin (porcine) 5,000 unit/mL 5,000 unit SCi Q8HR #2 5 mL 12/23/23 injection solution insulin regular human 100 unit/mL 2 unit (0.02 mL) SCi ACHS #10 mL 12/23/23 injection solution (Humulin R Regular U-100 Insulin) ciprofloxacin HCl 500 mg tablet 500 mg PO BID #14 tabs 12/31/23 (Cipro) cefuroxime axetil 500 mg tablet 500 mg PO BID #14 tabs 02/02/24 Allergies Allergy/AdvReac Type Severity Reaction Status Date / Time No Known Allergies Allergy Verified 04/22/24 09:35 Review of Systems Review of Systems Systems Reviewed: All systems reviewed, normal except as documented Constitutional Constitutional: Reports system reviewed and no additional complaints, except as documented, Denies fatigue, Denies fever(s), Denies headache(s) and Denies weakness Eyes Eyes: Reports system reviewed and no additional complaints, except as documented, Denies blurry vision and Denies change in vision ENT Ears, Nose, Mouth, and Throat: Reports system reviewed and no additional complaints, except as documented, Denies otalgia, Denies headache(s), Denies nasal congestion, Denies throat swelling and Denies vertigo Cardiovascular Cardiovascular: Reports system reviewed and no additional complaints, except as documented, Denies chest pain, Denies dyspnea and Denies dyspnea on exertion Respiratory Respiratory: Reports system reviewed and no additional complaints, except as documented, Denies chest congestion, Denies cough, Denies dyspnea, Denies dyspnea on exertion and Denies wheezing Gastrointestinal Gastrointestinal: Reports system reviewed and no additional complaints, except as documented, Denies abdominal pain, Denies cramping, Denies nausea and Denies vomiting Genitourinary Genitourinary: Reports system reviewed and no additional complaints, except as documented, Denies dysuria and Denies hematuria Musculoskeletal Musculoskeletal: Reports system reviewed and no additional complaints, except as documented and Denies back pain Integumentary/Breasts Skin/Breast: Reports system reviewed and no additional complaints, except as documented and Denies wounds Neurologic Neurologic: Reports system reviewed and no additional complaints, except as documented, Denies confusion, Denies headache(s), Denies lack of coordination, Denies vertigo and Denies weakness Psychiatric Psychiatric: Reports system reviewed and no additional complaints, except as documented, Denies anxiety, Denies confusion, Denies depression, Denies paranoia, Denies suicidal ideation and Denies tactile hallucinations Endocrine Endocrine: Reports system reviewed and no additional complaints, except as documented and Denies fatigue Hematologic/Lymphatic Hematologic/Lymphatic: Reports system reviewed and no additional complaints, except as documented and Denies lymphadenopathy Allergic/Immunologic Allergic/Immunologic: Reports system reviewed and no additional complaints, except as documented, Denies throat swelling, Denies urticaria and Denies wheezing Past Medical History Past Medical History NEUROLOGIC: Negative Neurological Disorders, Cerebrovascular Accident or Seizures CARDIAC: Positive Hypercholesterolemia and Hypertension; Negative Cardiac Disorders, Myocardial Infarction or Congestive Heart Failure RESPIRATORY: Positive Pneumonia; Negative Chronic Obstructive Pulmonary Disease (COPD) or Asthma GASTROINTESTINAL: Negative Gastrointestinal Disorders, Gastrointestinal Bleed or Hemorrhoids GENITOURINARY: Positive Prostate Cancer; Negative Genitourinary Disorders or Renal Disease ENDOCRINE: Negative Endocrine Disorders, Diabetes Mellitus Type 1 or Diabetes Mellitus Type 2 HEMATOLOGIC: Negative Blood Disorders or Sickle Cell Disease OTHER HISTORY: Positive Hospitalization, Cancer and Prostate Cancer; Negative Blood Transfusions or Anesthesia Reactions Surgical History SURGICAL: Negative Abdominal Surgery Social History SMOKING STATUS: Never smoker SUBSTANCE USE: does not use ED Exam General Limitations: Present no limitations General appearance: Present alert and in no apparent distress Head Head exam: Present atraumatic Eye Eye exam: Present normal appearance, PERRL and EOMI ENT ENT exam: Present normal exam, normal oropharynx and mucous membranes moist Neck Neck exam: Present normal inspection, full ROM and trachea midline Chest Chest inspection: Present normal inspection and symmetric chest wall rise Respiratory Respiratory exam: Present normal lung sounds bilaterally Cardiovascular Cardiovascular exam: Present regular rate, normal rhythm and normal heart sounds Abdominal Exam Abdominal exam: Present soft and normal bowel sounds Extremities Exam Extremities exam: Present normal inspection and full ROM Back Exam Back exam: Present normal inspection and full ROM Neurological Exam Neurological exam: Present alert, oriented X3 and CN II-XII intact Psychiatric Psychiatric exam: Present normal affect and normal mood Skin Skin exam: Present warm, dry, intact and normal color Course Quality Measures none Orders Category Date Time Status Seaman to Leg Bag Routine Care 04/22/24 09:39 Ordered Vital Signs Vital signs: Vital Signs Temperature 97.6 F 04/22/24 09:44 Pulse Rate 93 04/22/24 09:44 Respiratory Rate 19 04/22/24 09:44 Blood Pressure 150/79 H 04/22/24 09:44 Pulse Oximetry (%) 96 04/22/24 09:44 Oxygen Delivery Method Room Air 04/22/24 09:44 Urogenital - Male MDM Narrative MDM Narrative:: 88-year-old male with a history of type 2 diabetes presents to the emergency room with a chief complaint of needing a new catheter bag replaced. Patient states the leg bag started leaking yesterday. Patient states he has a Seaman catheter in place after they broke up some kidney stones and the patient began having urinary retention. Patient states he has a appointment with his urologist in a week and a half. Patient denies any other signs or symptoms. Patient is hemodynamically stable and in no apparent distress. The patient denies any abdominal tenderness, dysuria, hematuria. The patient is afebrile and is not tachycardic. Physical examination shows a soft nontender abdomen. Evaluation of the urinary catheter shows a leg bag that is leaking. Leg bag was replaced. Urinary catheter is not leaking and there are no complications. Leg bag was replaced and patient was discharged. The patient states he does not have any other complaints and just wants his leg bag replaced because it is leaking into his leg. Patient states he has an appointment in 1-1/2 weeks with his urologist. Patient was educated to not miss his appointment and educated return to the emergency room for any evidence of worsening signs or symptoms Patient data External records reviewed:: [facility] previous records Clinical information provided by:: patient Social determinants that could affect healthcare access:: none Patient has the following chronic illnesses:: Type 2 diabetes, BPH How is presenting disease/condition affected by chronic disease/condition?: exacerbated by Evaluation data The following diagnostics were reviewed and interpreted by me:: lab results and radiology exam(s) Lab and/or radiology exams considered but not ordered:: Labs and radiology exams considered and ordered Interpretation Summary: N/A Medications / Prescriptions Medications or Prescriptions considered but not ordered:: No medication given Medication administrations:: No medication given Consultations Consultation(s) initiated? (list below): No Diagnosis Urogenital Male Differential Diagnosis: urinary tract infection and other (Replacement of catheter) Most likely diagnosis given after review of the tests above:: Encounter for replacement of the leg bag Admission Indicated Admission indicated?: not indicated Admission Request Was there a request for admission?: No Disposition Plan Disposition Plan: Discharge Discharge Attestation Discharge Attestation: The patient and all family members were given an opportunity to ask questions and understood the discharge instructions. Discharge instructions specifically effects, indications for sooner follow up or return to the emergency department, and the expected course of current diagnosis. Patient condition: Stable Discharge Plan Plan Patient Disposition: HOME (Self Care) Disposition Comment: Stable Prescriptions/Referrals Prescriptions/Med Rec: No Action ciprofloxacin HCl [Cipro] 500 mg tablet 500 mg PO BID Qty: 14 0RF baclofen 10 mg Tablet 10 mg PO QDAY hydrocodone-acetaminophen 7.5-325 mg tablet 1 tab PO Q6H MDD 4 PRN (Reason: pain) Qty: 14 0RF dextrose 50 % in water (D50W) Syringe 50 ml IV Q15MIN PRN (Reason: BG <50 OR BG <70 & pt unresponsive) Qty: 500 0RF glucagon HCl 1 mg/mL Recon Soln 1 mg IM Q15MIN PRN (Reason: BG <70, and no IV access) Qty: 10 0RF Humulin R Regular U-100 Insuln 100 unit/mL Solution 2 unit SCi ACHS Qty: 10 0RF heparin (porcine) 5,000 unit/mL Solution 5,000 unit SCi Q8HR Qty: 25 0RF cefuroxime axetil 500 mg tablet 500 mg PO BID Qty: 14 0RF Problem List Clinical Impression: Encounter for Seaman catheter replacement Patient/Caregiver Discharge Instructions Additional Instructions: Por favor, consulte con hughes ur?logo lo antes posible. En kyree momento, la bolsa de pierna que est? conectada a hughes cat?ter urinario tiene arnaldo fuga. No hay fugas ni problemas o complicaciones con hughes cat?ter urinario actual. Se reemplaz? la bolsa de pier[place], consulte con hughes ur?logo y regrese a la brenda de emergencias si hay evidencia de empeoramiento de los signos o s?ntomas. Print Language: Belarusian Stand Alone Forms: Janell Award Info., Patient Portal Info Letter PA/CNC SERVICE TECHNICIAN Supervising Physician PA/CNC SERVICE TECHNICIAN Supervising Physician: Dr. Olson
--- NOTE | 2024-04-22 10:23 | PC.NURSE ---
PT LEG BAG LEAKING, BAG CHANGED
== END 2024-04-22 10:23 | disposition home or self-care (01) ==
LOC: SERX 10:30
PROVIDERS: Emergency Provider Emergency Medicine; PCP Family Medicine
DX: Z46.6 Encounter for fitting and adjustment of urinary device (principal); E11.9 Type 2 diabetes mellitus without complications; N40.1 Benign prostatic hyperplasia with lower urinary tract symptoms; R33.8 Other retention of urine
CPT/HCPCS: 99282

== ENCOUNTER 2024-06-16 09:46 | Emergency (ER) | payer MEDICARE, MEDICAID, SELFPAY ==
[2024-06-16 10:14] VITALS: BP 169/81; PULSE 80; RESP 16; TEMP 36.6; O2SAT 98; BMI 27.9
--- NOTE | 2024-06-16 11:09 | EDNOTE_ITS ---
ED Male Genitalurinary RME/HPI General Chief complaint: Urogenital-Male Stated complaint: URINATION PROBLEMS Time Seen by Provider: 06/16/24 10:04 Arrival date/time: 06/16/24 09:46 This is an 88-year-old male that comes in with son with complaints of Seaman bag ripped. Patient has not had his Seaman catheter changed in 2 months. Patient only had catheter in but no bag connected. Per patient's son he had some blood in his urine a couple days ago. Patient really has no complaints. Urine was smelling foul per patient. Patient has a history of having his prostate removed and also had kidney stones and per patient's son who is a poor historian stated that he had his kidney stones removed and since then he has had the catheter Related Data Home Medications ?Medication ?Instructions ?Recorded ?Confirmed baclofen 10 mg tablet 10 mg PO QDAY 03/08/2205/05 Previous Rx's ?Medication ?Instructions ?Recorded hydrocodone 7.5 mg-acetaminophen 1 tab PO Q6H PRN pain #14 tabs 03/08/22 325 mg tablet dextrose 50 % in water (D50W) 50 ml IV Q15MIN PRN BG < 50 OR BG 12/23/23 <70 & pt unresponsive #500 mL glucagon HCl 1 mg/mL solution for 1 mg IM Q15MIN PRN B G <70, and no 12/23/23 injection IV access #10 ea heparin (porcine) 5,000 unit/mL 5,000 unit SCi Q8HR #2 5 mL 12/23/23 injection solution insulin regular human 100 unit/mL 2 unit (0.02 mL) SCi ACHS #10 mL 12/23/23 injection solution (Humulin R Regular U-100 Insulin) ciprofloxacin HCl 500 mg tablet 500 mg PO BID #14 tabs 12/31/23 (Cipro) cefuroxime axetil 500 mg tablet 500 mg PO BID #14 tabs 02/02/24 cephalexin 500 mg capsule 500 mg PO TID 7 days #21 cap s 06/16/24 Allergies Allergy/AdvReac Type Severity Reaction Status Date / Time No Known Allergies Allergy Verified 06/16/24 09:51 Course Orders Category Date Time Status Urinalysis Stat Lab 06/16/24 11:39 Completed Urine Culture Stat Lab 06/16/24 11:39 Received cefTRIAXone [Rocephin] 1,000 mg Med 06/16/24 13:40 Discontinued Lidocaine 1% 20 ml [Xylocaine 1% 20 ML] 2.1 ml IM X1 Vital Signs Vital signs: Vital Signs Temperature 97.8 F 06/16/24 10:14 Pulse Rate 80 06/16/24 10:14 Respiratory Rate 16 06/16/24 10:14 Blood Pressure 169/81 H 06/16/24 10:14 Pulse Oximetry (%) 98 06/16/24 10:14 Oxygen Delivery Method Room Air 06/16/24 10:14 Urogenital - Male MDM Narrative MDM Narrative:: Patient's catheter had not been changed in 2 days. Catheter changed today. I explained to patient and patient's family member that it is very important that this catheter gets changed at least every month. Patient needs to have follow- up with his primary provider. I told family to follow-up with urine culture with primary provider. I will give patient Rocephin here and send him with antibiotics p.o. Patient verbalizes understanding. Medications / Prescriptions Medication administrations:: Medication Administration History Discontinued Medications Ceftriaxone Sodium 1,000 mg/ (Lidocaine HCl 2.1 ml) 0 mg IM X1 ONE Stop: 06/16/24 13:41 Discharge Plan Plan Patient Disposition: HOME (Self Care) Patient condition on transfer: Stable Prescriptions/Referrals Prescriptions/Med Rec: New cephalexin 500 mg capsule 500 mg PO TID 7 Days Qty: 21 0RF No Action ciprofloxacin HCl [Cipro] 500 mg tablet 500 mg PO BID Qty: 14 0RF baclofen 10 mg Tablet 10 mg PO QDAY hydrocodone-acetaminophen 7.5-325 mg tablet 1 tab PO Q6H MDD 4 PRN (Reason: pain) Qty: 14 0RF dextrose 50 % in water (D50W) Syringe 50 ml IV Q15MIN PRN (Reason: BG <50 OR BG <70 & pt unresponsive) Qty: 500 0RF glucagon HCl 1 mg/mL Recon Soln 1 mg IM Q15MIN PRN (Reason: BG <70, and no IV access) Qty: 10 0RF Humulin R Regular U-100 Insuln 100 unit/mL Solution 2 unit SCi ACHS Qty: 10 0RF heparin (porcine) 5,000 unit/mL Solution 5,000 unit SCi Q8HR Qty: 25 0RF cefuroxime axetil 500 mg tablet 500 mg PO BID Qty: 14 0RF Referrals: Xiang Palacio MD [Primary Care Provider] - In 1 week Problem List Clinical Impression: Hematuria, UTI (urinary tract infection) Patient/Caregiver Discharge Instructions Discharge Activity: activity as tolerated Education Materials: ED Hematuria, ED Bladder Infection, Male (Adult) Additional Instructions: Cassy un bebeto con hughes medico de cabecera en las proximas 24-48 horas. Regrese a la brenda de emergencias si hay evidencia de que los signos o sintomas empeoran. Print Language: Luxembourgish Stand Alone Forms: Janell Award Info., Patient Portal Info Letter PA/[facility] Supervising Physician PA/[facility] Supervising Physician: solitario
--- NOTE | 2024-06-16 11:43 | PC.NURSE ---
guardado and leg bag changed as ordered by provider and UA sent to lab
[2024-06-16 12:23] LABS: Collection Type, Urine Catheter
[2024-06-16 13:19] LABS: Bacteria,Urine 2+; Bilirubin,Urine Negative (Negative); Blood,Urine 3+ (Negative); Glucose, Urine Negative (Negative); Ketones,Urine Negative (Negative); Leukocyte Esterase,Urine Positive (Negative); Nitrite,Urine Negative (Negative); Protein,Urine 1+ (Neg - Trace); RBC,Urine 4157 /hpf (0-3); Specific Gravity,Urine 1.021 (1.001-1.035); Squamous Epithelial Cell,Urine 6 /hpf (0-5); Urobilinogen,Urine Negative mg/dL (0.0-1.0); WBC,Urine 891 /hpf (0-5)
[2024-06-16 13:20] LABS: Clarity,Urine Turbid (Clear/Hazy)
[2024-06-16 13:21] LABS: Color,Urine Yellow (Lt Yel-Yel)
[2024-06-16] MEDS: cefTRIAXone 1,000 MG, LIDOCAINE 1% 20 ML 2.1 ML IM (13:53)
== END 2024-06-16 14:03 | disposition home or self-care (01) ==
PROVIDERS: Nurse Practitioner Family; Emergency Provider Emergency Medicine; PCP Family Medicine
DX: N39.0 Urinary tract infection, site not specified (principal); R31.9 Hematuria, unspecified; Z90.79 Acquired absence of other genital organ(s); Z87.442 Personal history of urinary calculi
CPT/HCPCS: 81001; 87077; 87086; 87186; 96372; 99283; J0696; J3490

== ENCOUNTER 2024-08-15 19:43 | Emergency (ER) | payer MEDICARE, MEDICAID, SELFPAY ==
[2024-08-15 20:31] VITALS: BP 125/77; PULSE 96; RESP 18; TEMP 36.8; O2SAT 96; BMI 26.6
--- NOTE | 2024-08-15 20:39 | PD.EDMALE ---
ED Male Genitalurinary RME/HPI General Chief complaint: Urogenital-Male Stated complaint: NEEDS MAGUIRE BAG CHANGED Time Seen by Provider: 08/15/24 20:36 Arrival date/time: 08/15/24 19:43 88M with history of HTN, DM, and chronic Maguire presents to ED needing new Maguire bag because it ripped. Patient states urine is still flowing from bag and denies any pain. Limitations: no limitations Related Data Home Medications ?Medication ?Instructions ?Recorded ?Confirmed baclofen 10 mg tablet 10 mg PO QDAY 03/08/22 05/05/22 Previous Rx's ?Medication ?Instructions ?Recorded hydrocodone 7.5 mg-acetaminophen 1 tab PO Q6H PRN pain #14 tabs 03/08/22 325 mg tablet dextrose 50 % in water (D50W) 50 ml IV Q15MIN PRN BG <50 OR BG 12/23/23 <70 & pt unresponsive #500 mL glucagon HCl 1 mg/mL solution for 1 mg IM Q15MIN PRN BG <70, and no 12/23/23 injection IV access #10 ea heparin (porcine) 5,000 unit/mL 5,000 unit SCi Q8HR #25 mL 12/23/23 injection solution insulin regular human 100 unit/mL 2 unit (0.02 mL) SCi ACHS #10 mL 12/23/23 injection solution (Humulin R Regular U-100 Insulin) ciprofloxacin HCl 500 mg tablet 500 mg PO BID #14 tabs 12/31/23 (Cipro) cefuroxime axetil 500 mg tablet 500 mg PO BID #14 tabs 02/02/24 Allergies Allergy/AdvReac Type Severity Reaction Status Date / Time No Known Allergies Allergy Verified 06/16/24 09:51 Review of Systems Review of Systems Systems Reviewed: All systems reviewed, normal except as documented Constitutional Constitutional: Reports system reviewed and no additional complaints, except as documented, Denies fever(s) and Denies headache(s) ENT Ears, Nose, Mouth, and Throat: Denies disequilibrium and Denies headache(s) Cardiovascular Cardiovascular: Reports system reviewed and no additional complaints, except as documented, Denies chest pain and Denies dyspnea Respiratory Respiratory: Reports system reviewed and no additional complaints, except as documented, Denies cough and Denies dyspnea Gastrointestinal Gastrointestinal: Reports system reviewed and no additional complaints, except as documented, Denies abdominal pain, Denies nausea and Denies vomiting Neurologic Neurologic: Reports system reviewed and no additional complaints, except as documented, Denies confusion, Denies disequilibrium and Denies headache(s) Psychiatric Psychiatric: Denies confusion Past Medical History Past Medical History NEUROLOGIC: Negative Neurological Disorders, Cerebrovascular Accident or Seizures CARDIAC: Positive Hypercholesterolemia and Hypertension; Negative Cardiac Disorders, Myocardial Infarction or Congestive Heart Failure RESPIRATORY: Positive Pneumonia; Negative Chronic Obstructive Pulmonary Disease (COPD) or Asthma GASTROINTESTINAL: Negative Gastrointestinal Disorders, Gastrointestinal Bleed or Hemorrhoids GENITOURINARY: Positive Prostate Cancer; Negative Genitourinary Disorders or Renal Disease ENDOCRINE: Negative Endocrine Disorders, Diabetes Mellitus Type 1 or Diabetes Mellitus Type 2 HEMATOLOGIC: Negative Blood Disorders or Sickle Cell Disease OTHER HISTORY: Positive Hospitalization, Cancer and Prostate Cancer; Negative Blood Transfusions or Anesthesia Reactions Surgical History SURGICAL: Negative Abdominal Surgery Social History SMOKING STATUS: Never smoker SUBSTANCE USE: does not use ED Exam General Limitations: Present no limitations General appearance: Present alert and in no apparent distress Head Head exam: Present atraumatic Eye Eye exam: Present normal appearance, PERRL and EOMI ENT ENT exam: Present normal exam, normal oropharynx and mucous membranes moist Neck Neck exam: Present normal inspection, full ROM and trachea midline Chest Chest inspection: Present normal inspection and symmetric chest wall rise Respiratory Respiratory exam: Present normal lung sounds bilaterally Cardiovascular Cardiovascular exam: Present regular rate, normal rhythm and normal heart sounds Abdominal Exam Abdominal exam: Present soft and normal bowel sounds Extremities Exam Extremities exam: Present normal inspection and full ROM Back Exam Back exam: Present normal inspection and full ROM Neurological Exam Neurological exam: Present alert, oriented X3 and CN II-XII intact Psychiatric Psychiatric exam: Present normal affect and normal mood Skin Skin exam: Present warm, dry, intact and normal color Course Quality Measures none Orders Category Date Time Status Maguire to Leg Bag Routine Care 08/15/24 20:37 Ordered Vital Signs Vital signs: Vital Signs Temperature 98.3 F 08/15/24 20:31 Pulse Rate 96 08/15/24 20:31 Respiratory Rate 18 08/15/24 20:31 Blood Pressure 125/77 08/15/24 20:31 Pulse Oximetry (%) 96 08/15/24 20:31 Oxygen Delivery Method Room Air 08/15/24 20:31 O2 at 96% on RA and WNLs Urogenital - Male MDM Narrative MDM Narrative:: 88M with history of HTN, DM, and chronic Maguire presents to ED needing new Maguire bag because it ripped. Patient states urine is still flowing from bag and denies any pain. Physical exam reveals well-appearing male. Patient is afebrile, calm, and alert. Bag changed. Patient data External records reviewed:: [facility] previous records Clinical information provided by:: patient Social determinants that could affect healthcare access:: none Patient has the following chronic illnesses:: HTN, DM, and chronic Maguire How is presenting disease/condition affected by chronic disease/condition?: exacerbated by Evaluation data The following diagnostics were reviewed and interpreted by me:: other (specify) (none) Lab and/or radiology exams considered but not ordered:: not ordered Interpretation Summary: n/a Medications / Prescriptions Medications or Prescriptions considered but not ordered:: not ordered Medication administrations:: n/a Consultations Consultation(s) initiated? (list below): No Diagnosis Urogenital Male Differential Diagnosis: urinary tract infection, priapism, urethritis, epididymitis, genital herpes simplex, prostatitis, acute retention of urine, inguinal hernia and other (encounter for Maguire adjustment) Most likely diagnosis given after review of the tests above:: encounter for Maguire adjustment Admission Indicated Admission indicated?: not indicated Admission Request Was there a request for admission?: No Disposition Plan Disposition Plan: Discharge Discharge Attestation Discharge Attestation: The patient and all family members were given an opportunity to ask questions and understood the discharge instructions. Discharge instructions specifically effects, indications for sooner follow up or return to the emergency department, and the expected course of current diagnosis. Patient condition: Stable Discharge Plan Plan Patient Disposition: HOME (Self Care) Discharge Disposition comment: Stable Prescriptions/Referrals Prescriptions/Med Rec: No Action ciprofloxacin HCl [Cipro] 500 mg tablet 500 mg PO BID Qty: 14 0RF baclofen 10 mg Tablet 10 mg PO QDAY hydrocodone-acetaminophen 7.5-325 mg tablet 1 tab PO Q6H MDD 4 PRN (Reason: pain) Qty: 14 0RF dextrose 50 % in water (D50W) Syringe 50 ml IV Q15MIN PRN (Reason: BG <50 OR BG <70 & pt unresponsive) Qty: 500 0RF glucagon HCl 1 mg/mL Recon Soln 1 mg IM Q15MIN PRN (Reason: BG <70, and no IV access) Qty: 10 0RF Humulin R Regular U-100 Insuln 100 unit/mL Solution 2 unit SCi ACHS Qty: 10 0RF heparin (porcine) 5,000 unit/mL Solution 5,000 unit SCi Q8HR Qty: 25 0RF cefuroxime axetil 500 mg tablet 500 mg PO BID Qty: 14 0RF Problem List Clinical Impression: Encounter for Maguire catheter fitting and adjustment Patient/Caregiver Discharge Instructions Additional Instructions: Please follow-up with PCP within 24-48 hours and return immediately if symptoms worsen. Print Language: Uzbek Stand Alone Forms: Patient Portal Info Letter PA/MAPPING ENGINEER Supervising Physician PA/MAPPING ENGINEER Supervising Physician: Dr. Dougherty
--- NOTE | 2024-08-15 21:13 | PC.NURSE ---
Catheter leg bag change d/t leaking. FC patent and draining to gravity.
== END 2024-08-15 21:15 | disposition home or self-care (01) ==
PROVIDERS: Emergency Provider Emergency Medicine
DX: Z46.6 Encounter for fitting and adjustment of urinary device (principal); E11.9 Type 2 diabetes mellitus without complications; I10 Essential (primary) hypertension
CPT/HCPCS: 99282

== ENCOUNTER 2024-10-26 11:47 | Emergency (ER) | payer MEDICARE, MEDICAID, SELFPAY ==
[2024-10-26 12:02] VITALS: BP 130/80; PULSE 97; RESP 18; TEMP 37; O2SAT 96; BMI 23.5
--- NOTE | 2024-10-26 12:15 | EDNOTE_ITS ---
<Statement entered by Kinjal Guardado MD - 10/26/24 14:58> As co-signing physician, I was present and available for consult prn. I concur with the plan and care as documented by the midlevel provider. ED Male Genitalurinary RME/HPI General Chief complaint: Urogenital-Male Stated complaint: NEEDS CATHETER CHANGED Time Seen by Provider: 10/26/24 11:50 Arrival date/time: 10/26/24 11:47 Limitations: no limitations RME / HPI RME / HPI Narrative: 89M with history of HTN, DM, and chronic Guardado presents to ED needing new Guardado bag because it ripped at the base. Patient states urine is still flowing from bag and denies any pain. was told they should come in and have it changed to leg bag adaptor and asking for a spare leg bag. These incidents keep happening and trips ove the guardado. No fever. hx of prostate issues. Limitations: no limitations Related Data Home Medications ?Medication ?Instructions ?Recorded ?Confirmed baclofen 10 mg tablet 10 mg PO QDAY 03/08/2205/05 Previous Rx's ?Medication ?Instructions ?Recorded hydrocodone 7.5 mg-acetaminophen 1 tab PO Q6H PRN pain #14 tabs 03/08/22 325 mg tablet dextrose 50 % in water (D50W) 50 ml IV Q15MIN PRN BG < 50 OR BG 12/23/23 <70 & pt unresponsive #500 mL glucagon HCl 1 mg/mL solution for 1 mg IM Q15MIN PRN B G <70, and no 12/23/23 injection IV access #10 ea heparin (porcine) 5,000 unit/mL 5,000 unit SCi Q8HR #2 5 mL 12/23/23 injection solution insulin regular human 100 unit/mL 2 unit (0.02 mL) SCi ACHS #10 mL 12/23/23 injection solution (Humulin R Regular U-100 Insulin) ciprofloxacin HCl 500 mg tablet 500 mg PO BID #14 tabs 12/31/23 (Cipro) cefuroxime axetil 500 mg tablet 500 mg PO BID #14 tabs 02/02/24 Allergies Allergy/AdvReac Type Severity Reaction Status Date / Time No Known Allergies Allergy Verified 10/26/24 11:50 Review of Systems Review of Systems Systems Reviewed: All systems reviewed, normal except as documented Genitourinary Genitourinary: Reports as per HPI ED Exam General Limitations: Present no limitations General appearance: Present alert and in no apparent distress Eye Eye exam: Present normal appearance, PERRL and EOMI Respiratory Respiratory exam: Present normal lung sounds bilaterally Cardiovascular Cardiovascular exam: Present regular rate, normal rhythm and normal heart sounds Abdominal Exam Abdominal exam: Present soft and normal bowel sounds exam: Present normal inspection (no leakage at urethra, some leakage from guardado bag (in grocery bag) ) Extremities Exam Extremities exam: Present normal inspection and full ROM Back Exam Back exam: Present normal inspection and full ROM Psychiatric Psychiatric exam: Present normal affect and normal mood Skin Skin exam: Present warm, dry, intact and normal color Course Quality Measures none Orders Category Date Time Status Guardado to Leg Bag Routine Care 10/26/24 12:15 Ordered Vital Signs Vital signs: Vital Signs Temperature 98.6 F 10/26/24 12:02 Pulse Rate 97 10/26/24 12:02 Respiratory Rate 18 10/26/24 12:02 Blood Pressure 130/80 10/26/24 12:02 Pulse Oximetry (%) 96 10/26/24 12:02 Oxygen Delivery Method Room Air 10/26/24 12:02 Urogenital - Male Patient data External records reviewed:: [facility] previous records Clinical information provided by:: patient and family Social determinants that could affect healthcare access:: other (specify) (Elderly unable to care for self) Patient has the following chronic illnesses:: Diabetes and prostate issues How is presenting disease/condition affected by chronic disease/condition?: caused by Evaluation data The following diagnostics were reviewed and interpreted by me:: other (specify) (None) Lab and/or radiology exams considered but not ordered:: No imaging or workup warranted at this time Interpretation Summary: No imaging or labs to interpret Medications / Prescriptions Medications or Prescriptions considered but not ordered:: Antibiotics considered, however unlikely to have UTI at this time Medication administrations:: None Consultations Consultation(s) initiated? (list below): No Diagnosis Urogenital Male Differential Diagnosis: urinary tract infection, urethritis, prostatitis, acute retention of urine and other (BPH with lower urinary tract symptoms, Guardado malfunction) Most likely diagnosis given after review of the tests above:: Guardado malfunction BPH Admission Indicated Admission indicated?: not indicated Admission Request Was there a request for admission?: No Disposition Plan Disposition Plan: Discharge Discharge Attestation Discharge Attestation: The patient and all family members were given an opportunity to ask questions and understood the discharge instructions. Discharge instructions specifically effects, indications for sooner follow up or return to the emergency department, and the expected course of current diagnosis. Patient condition: Stable Discharge Plan Plan Patient Disposition: HOME (Self Care) Discharge Disposition comment: f.u with pcp in 2-3days Prescriptions/Referrals Prescriptions/Med Rec: No Action ciprofloxacin HCl [Cipro] 500 mg tablet 500 mg PO BID Qty: 14 0RF baclofen 10 mg Tablet 10 mg PO QDAY hydrocodone-acetaminophen 7.5-325 mg tablet 1 tab PO Q6H MDD 4 PRN (Reason: pain) Qty: 14 0RF dextrose 50 % in water (D50W) Syringe 50 ml IV Q15MIN PRN (Reason: BG <50 OR BG <70 & pt unresponsive) Qty: 500 0RF glucagon HCl 1 mg/mL Recon Soln 1 mg IM Q15MIN PRN (Reason: BG <70, and no IV access) Qty: 10 0RF Humulin R Regular U-100 Insuln 100 unit/mL Solution 2 unit SCi ACHS Qty: 10 0RF heparin (porcine) 5,000 unit/mL Solution 5,000 unit SCi Q8HR Qty: 25 0RF cefuroxime axetil 500 mg tablet 500 mg PO BID Qty: 14 0RF Problem List Clinical Impression: Malfunction of Guardado catheter, BPH (benign prostatic hyperplasia) Patient/Caregiver Discharge Instructions Print Language: Maltese Stand Alone Forms: Janell Award Info., Patient Portal Info Letter PA/CONE PICKER Supervising Physician PA/HELADIO Supervising Physician: Dr. Guardado
== END 2024-10-26 13:45 | disposition home or self-care (01) ==
PROVIDERS: Emergency Provider Emergency Medicine
DX: T83.091A Other mechanical complication of indwelling urethral catheter, initial encounter (principal); Y73.8 Miscellaneous gastroenterology and urology devices associated with adverse incidents, not elsewhere classified; N40.0 Benign prostatic hyperplasia without lower urinary tract symptoms; E11.9 Type 2 diabetes mellitus without complications; I10 Essential (primary) hypertension
CPT/HCPCS: 51702; 99284; A4314